=== PATIENT | female | born 1990 | race Caucasian/White ===

== ENCOUNTER 2022-09-02 10:57 | Outpatient (REF) | payer OTHER, SELFPAY ==
[2022-09-04 03:44] LABS: Lyme Blot 1.37 index
[2022-09-04 09:20] LABS: Lyme Abs Screen POSITIVE
[2022-09-09 23:43] LABS: 18 KD (IgG) Band NON-REACTIVE; 23 KD (IgG) Band NON-REACTIVE; 23 KD (IgM) Band REACTIVE; 28 KD (IgG) Band NON-REACTIVE; 30 KD (IgG) Band REACTIVE; 39 KD (IgM) Band NON-REACTIVE; 39KD (IgG) Band NON-REACTIVE; 41 KD (IgM) Band NON-REACTIVE; 41KD (IgG) Band REACTIVE; 45 KD (IgG) Band NON-REACTIVE; 58 KD (IgG) Band NON-REACTIVE; 66 KD (IgG) Band NON-REACTIVE; 93 KD (IgG) Band NON-REACTIVE; Lyme IgG Blot Interp NEGATIVE (NEGATIVE); Lyme IgM Blot Interp NEGATIVE (NEGATIVE)
== END 2022-09-02 10:58 | disposition home or self-care (01) ==
LOC: HO.MANLDS 10:57
PROVIDERS: Visit Provider Internal Medicine
DX: L08.9 Local infection of the skin and subcutaneous tissue, unspecified (principal)
CPT/HCPCS: 36415; 86617; 86618

== ENCOUNTER 2022-12-09 10:11 | Outpatient (REF) | payer OTHER, SELFPAY ==
[2022-12-09 13:30] LABS: MANUAL DIFF FLAG NO
[2022-12-09 13:45] LABS: Basophils Percent Auto 0.8 % (0-2); Eosinophils Absolute Auto 0.1 X10*3/uL (0.0-0.4); Eosinophils Percent Auto 3.6 % (0-4); Hematocrit 44.6 % (37.0-47.0); Hemoglobin 15.2 g/dl (12.0-16.0); Imm Gran Abs Auto 0.01 X10*3/uL (0.00-0.03); Imm Gran Pct Auto 0.3 % (0.0-0.4); Lymphocytes Absolute Auto 1.5 X10*3/uL (1.2-4.9); Lymphocytes Percent Auto 38.2 % (20-40); Mean Corpuscular HGB Conc 34.1 g/dl (31.0-35.0); Mean Corpuscular Hemoglobin 31.6 pg (27.0-33.0); Mean Corpuscular Volume 92.7 fL (80.0-98.0); Mean Platelet Volume 11.7 fL (9.4-12.3); Monocytes Absolute Auto 0.3 X10*3/uL (0.1-1.2); Monocytes Percent Auto 8.8 % (2-11); Neutrophils Absolute Auto 1.9 x10*3/uL (2.0-8.3); Neutrophils Percent Auto 48.3 % (45-73); Platelet Count 234 X10*3/uL (160-400); Red Blood Count 4.81 X10*6/uL (4.20-5.50); Red Cell Distribution Width 12.4 % (11.0-16.0); White Blood Count 3.9 X10*3/uL (4.8-10.8)
[2022-12-09 14:18] LABS: Alanine Aminotransferase 18 U/L (0-31); Albumin Level 4.4 g/dL (3.5-5.0); Alkaline Phosphatase 48 U/L (39-117); Anion Gap 14 (12-20); Aspartate Amino Transferase 22 U/L (5-31); Bilirubin Total 0.9 mg/dL (0.0-1.0); Blood Urea Nitrogen 10 mg/dL (9-16); Calcium 9.6 mg/dL (8.4-10.2); Carbon Dioxide 24 mmol/L (22-29); Chloride 106 mmol/L (96-108); Cholesterol 165 mg/dL (<200); Estimated Glomerular Filt Rate > 60; Ferritin 184 ng/mL (10-122); Glucose Random 75 mg/dL (60-115); HDL Cholesterol 48 mg/dL (>40); Iron 136 mcg/dL (30-160); LDL Cholesterol Calculated 90 mg/dL (<100); Percent Iron Saturation 51 % (15-50); Potassium 3.9 mmol/L (3.3-5.1); Sodium 140 mmol/L (135-145); Total Iron Binding Capacity 266 mcg/dL (228-428); Total Protein 7.2 g/dL (6.5-8.0); Triglycerides 135 mg/dL (<150); Unsaturated Iron Binding 130 ug/dL; Vitamin D 25-OH Total 48.6 ng/mL (>30)
== END 2022-12-09 10:12 | disposition home or self-care (01) ==
LOC: HO.MANLDS 10:11
PROVIDERS: Visit Provider Internal Medicine
DX: Z00.00 Encounter for general adult medical examination without abnormal findings (principal); D64.9 Anemia, unspecified
CPT/HCPCS: 36415; 80053; 80061; 82306; 82728; 83540; 85025

== ENCOUNTER 2024-11-30 10:04 | Outpatient (REF) | payer BC, SELFPAY ==
--- OUTSIDE RECORDS SUMMARY | 2024-11-30 12:16 | XMS_ITS | Encounter Summary ---
Author Organization [facility] Address [address] [place] [phone] Phone Care Team Providers Care Assembly Person Name Role Phone Pasha Alfredo DO Primary Care Provider [phone] Encounter Details Date Type Department Care Team ([facility] st Contact Info) Description 06/02/2024 Procedure Pass Non-Invasive Cardiology [address] [place] [address] Social History Tobacco Use Types Packs/Day Years Used Date Smoking Tobacco: Never Smokeless Tobacco: Never Alcohol Use Standard Drinks/Week Comments Yes 0 (1 standard drink = 0.6 oz pur e alcohol) a few drinks everyday Education Answer Date Recorded Are you interested in more education? Not on allison e 07/05/2022 Are you concerned about learning? Not on file 07/05/2022 No 07/05/2022 No 07/05/2022 Digital Access Answer Date Recorded No 08/05/2022 No 08/05/2022 Reliable internet access at home? Not on file 08/05/2022 Device with a working camera? 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 It is not the complete legal health record.[facility]
--- OUTSIDE RECORDS SUMMARY | 2024-11-30 12:16 | XMS_ITS | Encounter Summary ---
Author Organization [facility] Address [address] [place] [phone] Phone Care Team Providers Care Wire Weaver Name Role Phone NathanPasha simpson Sd LINARES Primary Care Provider [phone] Juni Pasha Beaver DO Unavailable Noris Miller CNM Unavailable Dea Santamaria CNM Unavailable Guillaume Rocha MD Unavailable Bre Gomez LEATHER PRODUCTION MACHINE OPERATOR Unavailable Susanne Santiago LEATHER PRODUCTION MACHINE OPERATOR Unavailable [phone] Dea Daugherty RDCS Unavailable [email or web address] Dari Cortes MD Unavailable [phone] Aislinn Marin MAJOR GIFTS OFFICER Unavailable Juni Pasha Beaver DO Unavailable Encounter Details Date Type Department Care Team (Late st Contact Info) Description 07/29/2018 Ancillary Orders Virtual Department [address] [place] [address] Yeimi Bergeron PA-C 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 file Not on file Not on file documented as of this encounter Plan of Treatment Not on file documented as of this encounter Results * Holter Monitor 24 Hours (08/05/2018 3:59 PM EDT) Total Beats 116,107 [facility] Ventricular Ectopy Total Beats 0 [facility] Ventricular Ectopy Single Beats 0 [facility] Ventricular Pair 0 [facility] Ventricular Runs 0 [facility] Supraventricular Total Beats 1 [facility] Supraventricular Ectopic Single Beats 1 [facility] Supraventricular Pairs 0 [facility] Supraventricular Runs 0 [facility] Mean Heart Rate 81 BPM [facility] Maximum Heart Rate 138 BPM [facility] Minimum Heart Rate 54 BPM [facility] Longest RR 1.280 S [facility] Anatomical Region Laterality Modality Heart Other 08/04/2018 10:2 0 AM EDT 08/05/2018 2:03 PM EDT Narrative 08/06/2018 4:18 PM EDT Holter monitor report Indication palpitations Findings: The underlying rhythm is a normal sinus rhythm with an average heart rate of 81 bpm, minimal heart rate 54 bpm, maximal heart rate 138 bpm. There was no ventricular ectopy. There was one isolated PVC. Symptoms did not correlate with any abnormalities. Conclusion: Normal Holter monitor. Holter Monitor Main Form Hookup date: 08/04/2018 Scan date: 08/05/2018 Mean HR: 81 bpm Max HR: at 10:12 on 08/05/2018 138 bpm Min HR: at 12:31 on 08/04/2018 54 bpm Ventricular ectopic beats - total: 0 Ventricular ectopic beats - singles: 0 Ventricular ectopic beats - pairs: 0 Ventricular ectopic beats - runs: 0 Supraventricular ectopic beats - total: 1 Supraventricular ectopic beats - singles: 1 Supraventricular ectopic beats - pairs: 0 Supraventricular ectopic beats - runs: 0 Longest R-R interval at 08:44 on 08/05/20181.280 sec June Rubio [facility] ORDERABL ES Final Result documented in this encounter Visit Diagnoses Diagnosis Palpitations Palpitations documented in this encounter Care Teams Wire Weaver Relationship Specialty Start Date End Date Pasha Alfredo DO PCP - General 12/24/16 Pasha Alfredo DO [address] [place] [address] [place] [address] Historical LMR Provider 12/24/16 03/17/21 Noris Miller CNM [address] [place] [address] Historical LMR Provider 12/24/16 03/17/21 Dea Santamaria CNM [address] [place] [address] Historical LMR Provider 12/24/16 2 Guillaume Rocha MD [address] [place] [address] Historical LMR Provider 12/24/16 03/17/21 Bre Gomez NP [address] [place] [phone] Historical LMR Provider 12/24/16 2 Susanne Santiago NP [address] [place] [address] Historical LMR Provider 12/24/16 2 Dea Daugherty, LIS Historical LMR Provider 12/24/16 03/17/21 Dari Cortes MD [address] [place] [address] Historical LMR Provider 12/24/16 2 Aislinn Marin CNP [address] [facility] [address] [place] [address] Historical LMR Provider 12/24/16 Pasha Alfredo DO [address] [facility] [place] [address] Insurance Assigned Provider 06/13/1801/08 documented as of this encounter Additional Source Comments The information contained in this document represents components of the legal health record. It is not the complete legal health record.[facility]
--- OUTSIDE RECORDS SUMMARY | 2024-11-30 12:16 | XMS_ITS | Clinical Summary ---
Author Organization [facility] Address [address] [place] [address] Phone Care Team Providers Care Paint Trimmer Pipe Bowls Name Role Phone Pasha Alfredo DO Primary Care Provider [phone] Allergies No known active allergies Medications norgestrel-ethinyl estradioL (Anisa BAXTER,) 0.3-0.03 mg per tabletIndications: Oral contraceptive pill surveillance Take 1 tablet by mouth daily. 84 tablet 3 5 Active valACYclovir (VALTREX) 500 MG tabletIndications: Herpes simplex TAKE 1 TABLET (500 MG TOTAL) BY MOUTH DAILY. 90 tablet 3 5 Active Active Problems Problem Noted Date Diagnosed Date Herpes simplex 03/01/2018 Overview (03/01/2018): 02/2018: primary outbreak, + culture Rx: valtrex Resolved Problems Problem Noted Date Diagnosed Date Resolved Date Breakthrough bleeding on control pills 8 03/26/2019 Assessment & Plan (03/14/2017 11:24 AM EST): Reviewed that based on US findings and history, this is very likely secondary to relative endometrial atrophy due to oil heaterman OCP use. I explained we could try a presumptive course of doxycycline for possible contributing endometritis. She was interested in trying this. If not improved, will assume this is due to OCP and will call if this becomes too annoying and she desires to change method of contraception, perhaps to a non-hormonal method. Could use estradiol prn if BTB is intermittent, but not a oil heaterman plan. Will also check TSH as has never been checked. Again likely to be normal. Endometritis 03/14/2017 03/26/2019 Assessment & Plan (03/14/2017 11:23 AM EST): As above. Encounters Date Type Department Care Team Description 10/19/2024 5:15 PM EDT - 10/19/2024 11:59 PM EDT Hospital Encounter [facility] Specimen Processing [address] [place] [address] Pasha Alfredo, DO Discharge Disposition: Home or Self Care 10/19/2024 Transcribe Orders [facility] Specimen [facility] [address] [place] [address] Pasha Alfredo, DO Urinary tract infection without hematuria, site unspecified (Primary Dx) 10/17/2024 Refill [facility] [address] [place] [address] Arabella Smith MD Medication Refill 10/11/2024 2:50 PM EDT Office Visit [facility] [address] [place] [address] Arabella Smith MD Encounter for gynecological examination without abnormal finding (Primary Dx); Oral contraceptive pill surveillance 09/24/2024 5:23 PM EDT - 09/24/2024 11:59 PM EDT Hospital Encounter [facility]imen [facility] [address] [place] [address] Peg Cam PA Discharge Disposition: Home or Self Care 09/24/2024 Transcribe Orders [facility] Specimen [facility] [address] [place] [address] Peg Cam PA Urinary tract infection without hematuria, site unspecified (Primary Dx) 09/24/2024 Telephone [facility] [address] [place] [address] [place] [address] Tereza Anderson LPN 09/09/2024 Refill [facility] [address] [place] [address] Arabella Smith MD Medication Refill from Last 3 Months Family History Medical History Relation Comments Hypertension Brother 1 twin brother No Known Problems Brother 2 Hypertension Father Aneurysm Maternal Grandfather Diabetes mellitus Maternal Grandfather Osteoporosis Maternal Grandmother Heart attack Mother Hyperlipidemia Mother Hypertension Mother Skin cancer Mother Lung cancer Paternal Grandfather Lupus Paternal Grandmother Breast cancer Neg Hx Colon cancer Neg Hx Ovarian cancer Neg Hx Uterine cancer Neg Hx Relation Status Comments Brother 1 Alive Brother 2 Alive Father Alive Maternal Grandfather Maternal Grandmother Mother Alive Paternal Grandfather Paternal Grandmother Social History Tobacco Use Types Packs/Day Years Used Date Smoking Tobacco: Never Smokeless Tobacco: Never Tobacco Cessation:Counseling Given: Not Answered Alcohol Use Standard Drinks/Week Comments Yes 0 [...] 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 Not on file Not on file Last Filed Vital Signs Vital Sign Reading Time Taken Comments Blood Pressure 100/78 10/11/2024 2:48 PM EDT Pulse - - Temperature - - Respiratory Rate - - Oxygen Saturation - - Inhaled Oxygen Concentration - - Weight 55.3 kg (122 lb) 10/11/2024 2:48 PM EDT Height 157.5 cm (5' 2 ) 09/03/2023 1:26 PM EDT Body Mass Index 22.31 09/03/2023 1:26 PM EDT Plan of Treatment Health Maintenance Due Date Last Done Comments Adult Td,Tdap Booster 1990 DEPRESSION SCREENING 2002 HEPATITIS C SCREENING 2008 HIV ONE-TIME SCREENING (18-6 5 YEARS) 2008 INFLUENZA VACCINE (#1) 2024 COVID-19 VACCINE (3 2024-2 6 season) 2024 01/11/2021, 06/12/2020 PAP SMEAR 05/21/2026 05/21/2021, 03/20/2018, 03/20/2018 SMOKING STATUS SCREENING (On ce After 26 Yrs) Completed 10/11/2024 HEPATITIS A VACCINES Aged Out No long er eligible based on patient's age to complete this topic HIB VACCINES Aged Out No longer eligi ble based on patient's age to complete this topic MENINGOCOCCAL VACCINES (ACWY) Aged Out No longer eligible based on patient's age to complete this topic MENINGOCOCCAL VACCINES (B) Aged Out N o longer eligible based on patient's age to complete this topic PNEUMOCOCCAL VACCINES (0-49 years) Aged Out No longer eligible b ased on patient's age to complete this topic Medical Devices Not on file Procedures Procedure Name Priority Date/Time Associated Diagnosis Comments URINALYSIS W/REFLEX URINE CULTURE Routine 10/19/2024 5:17 PM EDT Urinary tract infection without hematuria, site unspecified URINE SEDIMENT Routine 09/24/2024 5:25 PM EDT URINALYSIS W/REFLEX URINE CULTURE Routine 09/24/2024 5:25 PM EDT Urinary tract infection without hematuria, site unspecified URINE CULTURE Routine 09/24/2024 5:25 PM EDT PAP TEST Routine 05/21/2021 12:00 AM EDT from Last 3 Months or Most Recently Relevant to Health Maintenance Results * (ABNORMAL) Urinalysis w/reflex Urine Culture (10/19/2024 5:17 PM EDT) Only the most recent of2 resultswithin the time period is included. COLOR STRAW(A) Yellow [facility] CLARITY Clear [facility] GLUCOSE Negative Negative [facility] BILI Negative Negative [facility] KETONES Negative Negative [facility] SPECIFIC GRAVITY <1.005 1.005 - 1.030 [facility] BLOOD Negative Negative [facility] PH 6.5 5.0 - 8.0 [facility] Protein-UA Negative Negative [facility] NITRITE Negative Negative [facility] Leukocyte esterase, ur Negative Negative [facility] Urine (Urine) 10/19/2024 5:1 7 PM EDT 10/19/2024 5:27 PM EDT us Pasha A Bigda DO URINE ORDERABLES Final Result Performing Organization Address [facility] Co de Phone Number [address] [address] * (ABNORMAL) Urine Culture (09/24/2024 5:25 PM EDT) Special Requests None Reflexed from [id number] 09/24/2024 7:47 PM EDT [facility] Urine Culture 10,000 to 100,000 colony forming units per mL MIXED LAURENT (3 OR MORE COLONY TYPES) Culture indicates contamination . Please resubmit if necessary.(A) 09/26/2024 9:04 AM EDT [facility] Urine 09/24/2024 5:25 PM EDT 09/24/2024 5:38 PM EDT us Peg ARTIS MICROBIOLOGY - GENERAL RUT SCHAEFFER Final Result Performing Organization Address [facility] Co de Phone Number [address] [address] * (ABNORMAL) Urine sediment (09/24/2024 5:25 PM EDT) WBC 11-20(A) NONE SEEN /hpf [facility] RBC 0-2(A) NONE SEEN /hpf [facility] URINE EPITHELIAL 0-4(A) NONE SEEN [facility] MUCUS Trace(A) NONE SEEN /hpf [facility] BACTERIA Trace(A) NONE SEEN /hpf [facility] 09/24/2024 5:25 PM EDT 09/24/2024 5:38 PM EDT Peg ARTIS URINE ORDERABLES Final Resu lt [address] [address] * Pap Smear (05/21/2021 12:00 AM EDT) 05/21/2021 05/22/2021 9:1 8 AM EDT Narrative SEE NARRATIVE - 05/25/2021 1:28 PM EDT [address] [address] Black Topper: Frieda Nicholas MD ETHYLBENZENE CONVERTER OPERATOR Cytology Report FINAL DIAGNOSIS A. PAP SMEAR (SUREPATH) CE: SPECIMEN ADEQUACY: Satisfactory for evaluation; transformation zone present. INTERPRETATION: NEGATIVE FOR INTRAEPITHELIAL LESION OR MALIGNANCY. Electronically Signed Out By: RACHELLE Rosales(ASCP) The Pap test is a screening test primarily for squamous cancers and precursors and has associated false-negative and false-positive results. New technologies such as liquid-based preparations may decrease but will not eliminate all false-negative results. Regular sampling and follow-up of unexplained clinical signs and symptoms are recommended to minimize false negative results. PROCEDURES/ADDENDA HPV Testing (Requested) Ordered Date: 05/22/2021 A. PAP SMEAR (SUREPATH) CE: Human Papilloma Virus Test Negative for high-risk human papillomavirus types 16, 18, 45 and the Other high risk probe set (Includes 31, 33, 35, 39, 51, 52, 56, 58, 59, 66, 68) by [employer] Onclarity HR-HPV analysis. Clinical correlation is advised. This HPV test was performed at [facility], [address] [place] [address]. This test has been FDA approved for SurePath cervical cytology specimens. The accuracy and precision of this test for all other specimen sources has been verified in the Cytopathology Laboratory of the [facility] and has not been cleared or approved by the U.S. Food and Drug Administration. Clinical correlation is advised. CLINICAL HISTORY Date of Last Menstrual Period: 04-27-2019 Other Clinical Conditions: Screening Pap SPECIMEN SOURCE A: PAP SMEAR (SUREPATH) CE Patient Name: JANNETH GILBERT : 1990 (Age: 31) Sex: F Institution: [facility] Location: [facility] Date of Collection: 05/21/2021 Date of Reported: 05/25/2021 13:28 Results to: Arabella Smith MD us Arabella Smith MD CYTOLOGY ORDERABLES Final Res ult SEE NARRATIVE from Last 3 Months or Most Recently Relevant to Health Maintenance Insurance [facility] [place] [address] [facility] Care Teams Paint Trimmer Pipe Bowls Relationship Specialty Start Date End Date Pasha Alfredo DO [email or web address] PCP - General 12/24/16 Additional Source Comments The information contained in this document represents components of the legal health record. It is not the complete legal health record.[facility]
[2024-11-30 13:41] LABS: MANUAL DIFF FLAG NO
[2024-11-30 13:44] LABS: Hematocrit 41.4 % (37.0-47.0); Hemoglobin 14.0 g/dl (12.0-16.0); Imm Gran Abs Auto 0.01 X10*3/uL (0.00-0.03); Imm Gran Pct Auto 0.3 % (0.0-0.4); Lymphocytes Absolute Auto 1.3 X10*3/uL (1.2-4.9); Mean Corpuscular HGB Conc 33.8 g/dl (31.0-35.0); Mean Corpuscular Hemoglobin 31.3 pg (27.0-33.0); Mean Corpuscular Volume 92.6 fL (80.0-98.0); NRBC Abs Auto 0.000 X10*3/uL (0.0-0.012); NRBC Pct Auto 0.0 /100WBC (0.0-0.2); Platelet Count 251 X10*3/uL (160-400); Red Blood Count 4.47 X10*6/uL (4.20-5.50); White Blood Count 3.8 X10*3/uL (4.8-10.8)
[2024-11-30 14:31] LABS: Alanine Aminotransferase 16 U/L (0-31); Albumin Level 4.4 g/dL (3.5-5.0); Alkaline Phosphatase 44 U/L (39-117); Anion Gap 12 (12-20); Aspartate Amino Transferase 24 U/L (5-31); Blood Urea Nitrogen 11 mg/dL (9-16); Calcium 8.8 mg/dL (8.4-10.2); Carbon Dioxide 25 mmol/L (22-29); Chloride 106 mmol/L (96-108); Cholesterol 146 mg/dL (<200); Estimated Glomerular Filt Rate > 60; HDL Cholesterol 45 mg/dL (>40); Potassium 4.6 mmol/L (3.3-5.1); Sodium 138 mmol/L (135-145); Total Protein 7.0 g/dL (6.5-8.0); Triglycerides 114 mg/dL (<150)
== END 2024-11-30 10:05 | disposition home or self-care (01) ==
LOC: HO.MANLDS 10:04
PROVIDERS: Visit Provider Internal Medicine
DX: Z00.00 Encounter for general adult medical examination without abnormal findings (principal); Z13.6 Encounter for screening for cardiovascular disorders
CPT/HCPCS: 36415; 80053; 80061; 82306; 85025